=== PATIENT | female | born 1965 | race Asian ===

== ENCOUNTER 2019-02-23 19:58 | Emergency (ER) | payer OTHER ==
[~2019-02-23 19:58] MED LIST: ACET-1718 PO; BACDS PO; CALC-853 PO; CIPR-212 PO; FERR325T24 PO; IBUP100T49 PO; MECL-205 PO; MEDR10TA57 PO; PHENA200 PO; SCOPALAMINE; [UNRECOGNIZED DRUG - OTHER]
--- NOTE | 2019-02-23 21:08 | ER Report ---
History and Physical Time Seen By MD: 08:00 Hx. of Stated Complaint: laceration to right middle finger. HPI/ROS CHIEF COMPLAINT: Finger lacerations HISTORY OF PRESENT ILLNESS: Patient is a 53-year-old female who presents the ED with complaint of finger lacerations on the right 3rd and 4th fingers. She st ates that these occurred about 20 minutes ago after she was moving a washing machine. She states she cut her hands on the metal. She was not wearing any gloves. She is uncertain of her last tetanus vaccination. She is able to move all her fingers well without any pain. REVIEW OF SYSTEMS: Constitutional: No fever, no chills. Cardiovascular: No chest pain, no palpitations. Respiratory: No cough, no shortness of breath. Musculoskeletal: See history of present illness. Skin: See history of present illness. Neurological: No headache. Allergies: Coded Allergies: No Known Drug Allergies (Verified , 08/02/13) Home Meds Active Scripts Medroxyprogesterone Acetate (PROVERA) 10 Mg Tablet, 10 MG PO DAILY, #7 Prov:PEPE VICTORIA MD 08/03/13 Reported Medications Acetaminophen With Codeine # 3 (ACETAMINOPHEN-COD #3 TABLET) 1 Each Tablet, 1-2 EACH PO Q4H, TAB 08/29/13 Ibuprofen (MOTRIN) 100 Mg Tablet, 800 MG PO TID 08/29/13 Ferrous Sulfate (IRON) 325 Mg Tablet, 325 MG PO 08/02/13 Reviewed Nurses Notes: Yes Old Medical Records Reviewed: Yes Hx Smoking: No Exposure to Second Hand Smoke?: No Hx Substance Use Disorder: No Hx Alcohol Use: No Constitutional Vital Sign - Last 24 Hours 02/23/19 20:04 Temp 97.9 Pulse 88 Resp 16 B/P (MAP) 139/85 Pulse Ox 95 Physical Exam General Appearance: The patient is alert, has no immediate need for airway protection and no current signs of toxicity. Patient appears to be no acute distress. Respiratory: Chest is non tender, lungs are clear to auscultation. Cardiac: regular rate and rhythm Musculoskeletal: Neck: Neck is supple and non tender. Extremities have full range of motion and are non tender. Skin: There is a 1.5 cm fairly linear laceration on the 4 aspect of the right 3rd finger at the DIP area. There is another 0.5 cm linear laceration in the DIP area of the 4th finger on the volar aspect. Radial pulses 2+ with normal capillary refill. Full range of motion of the fingers without any pain. Medical Decision Making ED Course/Re-evaluation ED Course Procedure: Laceration repair. [Verbal consent was obtained from the patient.] The 2 cm total laceration on the right 3rd and 4th fingers was anesthetized in the usual fashion using digital block of the 3rd finger with 1% lidocaine. The wound was scrubbed, draped and explored to its base with a gloved finger. There were no deep structures involved. The wound was repaired with 4 4-0 Prolene sutures in simple interrupted fashion on the 3rd finger and Dermabond on the 4th finger. The wound repair was simple. The procedure was performed by myself. Decision to Disposition Date: Feb 23, 2019 Decision to Disposition Time: 21:05 Depart Departure Latest Vital Signs Vital Signs Date Time Temp Pulse Resp B/P (MAP) Pulse Ox O2 Delivery O2 Flow Rate FiO2 02/23/19 20:04 97.9 88 16 139/85 95 Impression: Primary Impression: Finger laceration Condition: Improved Disposition: HOME OR SELF-CARE Referrals: LUCA VAUGHN MD (PCP) Patient Instructions: Finger Laceration (ED) Additional Instructions: Monitor for signs and symptoms of infection including redness, swelling, discharge, fever. Follow-up with primary care provider in one week for suture removal. If having any worsening or concerning symptoms may return to the emergency department. Problem Qualifiers Primary Impression: Finger laceration Encounter type: initial encounter Finger: middle finger Damage to nail status: without damage Foreign body presence: without foreign body Laterality: right Qualified Codes: S61.212A - Laceration without foreign body of right middle finger without damage to nail, initial encounter BRIDGETT MORIN PA-C Feb 23, 2019 21:08
[2019-02-23] MEDS ORDERED: DIPHTH/TETANUS/ACEL. PERTUSSIS IM ONLY ONE (21:10)
[2019-02-23 21:15] VITALS: BP 126/77
== END 2019-02-23 21:35 | disposition home or self-care (01) ==
LOC: ER 20:22
DX: S61.212A Laceration without foreign body of right middle finger without damage to nail, initial encounter (principal); S61.214A Laceration without foreign body of right ring finger without damage to nail, initial encounter
CPT/HCPCS: 90471; 90715; 99283